=== PATIENT | male | born 1990 | race Caucasian/White ===

== ENCOUNTER 2017-05-28 01:12 | Emergency (ER) | payer OTHER ==
[~2017-05-28] VITALS: Ht 182.9 cm; Wt 100.6 kg
[2017-05-28 01:14] VITALS: TEMP 36.8; Ht 182.9 cm; Wt 100.6 kg
[2017-05-28] MEDS ORDERED: PROPARACAINE HCL 0.5% OP SOLN 15 ML BTL OP STA (01:18)
[2017-05-28] MEDS ORDERED: DIPHTHERIA/TETANUS/PERTUSSIS 0.5 ML SYR/VIAL IM. ONE (01:45)
[2017-05-28] MEDS ORDERED: NORCO 5/325MG HOME PACK PO ONE (01:45)
[2017-05-28] MEDS ORDERED: CIPROFLOXACIN HCL 0.3% OP SOLN 2.5 ML BTL OP ONE (01:45)
[2017-05-28 01:55] VITALS: BP 127/82; PULSE 77; O2SAT 98
--- NOTE | 2017-05-28 06:20 | EMERGENCY ROOM VISIT NOTE ---
History First contact with patient: 01:18 Chief Complaint: EYE ASSESSMENT Stated Complaint: SOMETHING IN EYE History of Present Illness The patient is a 26 year old male who presents to the Emergency Room with complaints of left eye pain for the past one day. The patient works around cars and believes that he may have a piece of metal in his left eye. The patient tried to go to sleep tonight, and was not able to do so because of his discomfort. He attempted to wash out the foreign body at home with water, but was unable to do so. He is unsure of his tetanus. His vision is unaffected. He does not wear contact lenses and reports his discomfort a 6/10. Review of Systems More than 10 systems were reviewed and otherwise negative with the exception of history of present illness. Past Medical/Surgical History No chronic medical disease Family History No pertinent family history Social History Smoking Status: Never Smoker Occupation Status: employed Physical Exam Vital Signs Date Time Temp Pulse Resp B/P (MAP) Pulse Ox O2 Delivery O2 Flow Rate FiO2 05/28/17 01:55 77 16 127/82 98 05/28/17 01:14 36.8 72 16 137/91 99 Room Air Right Eye Acuity: 20/25 Left Eye Acuity: 20/30 Physical Exam VITALS: Vitals are noted on the nurse's note and reviewed by myself. Vital signs stable. Visual acuity as above. GENERAL: Well-developed, well-nourished, white male, who is in no acute distress and resting comfortably. Patient is cooperative with the examination. EYES: Pupils equal round and reactive to light and accommodation. Conjunctivae without injection, sclerae without icterus. Extraocular movements intact. There are 2 sub millimeter foreign bodies appreciated on the left anterior cornea. These do appear metallic in nature. HEART: Regular rate and rhythm without murmurs gallops or rubs. LUNGS: Clear to auscultation bilaterally without wheezes, rales or rhonchi. No retractions or accessory muscle use. Medical Decision & Procedures Medications Administered Medications (Trade) Dose Ordered Sig/Larissa Route Start Time Stop Time Status Last Admin Dose Admin Proparacaine HCl (Alcaine 0.5% Oph Soln) 2 drops NOW STAT OP 05/28/17 01:18 05/28/17 01:19 DC 05/28/17 01:25 2 DROPS Diphtheria/ Pertussis/Tetanus Vacc (Adacel Inj) 0.5 ml ONCE ONCE IM. 05/28/17 01:45 05/28/17 01:46 DC 05/28/17 01:53 0.5 ML Ciprofloxacin HCl (Ciprofloxacin 0.3% Op Soln) 2 drops NOW ONCE OP 05/28/17 01:45 05/28/17 01:46 DC 05/28/17 01:52 2 DROPS ED Course Physical exam and history were performed. Nursing notes, EMR, and Medication List were personally reviewed. Patient appears to have foreign body of his left eye. On exam there do appear to be 2 small metallic foreign bodies in the left cornea. His tetanus was updated. Alcaine drops were placed into the left eye, and utilizing the slit lamp the foreign bodies were removed utilizing a tuberculin needle. This was performed without complication, and the patient tolerated this well. I did perform Florescein examination utilizing the slit lamp, and there was minimal uptake in the area of the 2 foreign bodies. The patient will be started on Ciloxan. I will give him a home pack of Vicodin to use tonight if needed for pain control. The patient is to follow-up with his eye doctor or primary care physician any ongoing or persisting symptoms. He is otherwise invited back to the ER with any new, worsening, or concerning symptoms. The chart was completed utilizing [employer] Speech Voice Recognition Software. Grammatical errors, random word insertions, pronoun errors, and incomplete sentences are an occasional consequence of this system due to software limitations, ambient noise, and hardware issues. Any formal questions or concerns about the content, text, or information contained within the body of this dictation should be directly addressed to the provider for clarification. . Medical Decision Differential diagnosis includes, but is not limited to: Corneal abrasion, laceration, foreign body, globe injury, and others Blood Pressure Screening Patient's blood pressure: Normal blood pressure Impression Primary Impression: Foreign body in eye Departure Information Dispostion Home / Self-Care Condition GOOD Forms WORK / SCHOOL INSTRUCTIONS, HOME CARE DOCUMENTATION FORM, IMPORTANT VISIT INFORMATION Patient Instructions My [facility] Additional Instructions You were seen and evaluated today on an emergency basis only. This is not a substitute for, or an effort to provide, complete comprehensive medical care. It is not possible to recognize and treat all injuries or illnesses in a single emergency department visit. For this reason it is recommended that you followup with your eye doctor or primary care physician with any ongoing or persistent symptoms. Use Ciloxan Eye Drops: Instill 1-2 drops into the conjunctival sac every 2 hours while awake for 2 days and 1-2 drops every 4 hours while awake for the next 5 days Thaxton (hydrocodone/acetaminophen) 5/325 mg (homepack) every 6 hours as needed for worsening breakthrough pain. Do not drink or drive on Th[place]xton. This medication will likely make you tired. Do not take Thaxton and Tylenol at the same time as both contain acetaminophen. Thaxton may cause constipation. You may wish to take an [id number] stool softener like Colace if this occurs. You are welcome to return to the emergency department anytime with new, worsening, or concerning symptoms.
== END 2017-05-28 01:55 | disposition home or self-care (01) ==
LOC: C.EDB 01:13
DX: T15.02XA Foreign body in cornea, left eye, initial encounter (principal); H57.12 Ocular pain, left eye; X58.XXXA Exposure to other specified factors, initial encounter